=== PATIENT | male | born 2005 | race Two or more races ===

== ENCOUNTER → 2025-06-19 | Outpatient (CLI) | payer BC, SELFPAY ==
--- NOTE | 2025-06-19 10:19 | XR_ITS ---
Examination: Sinus series 4 views Technique: Oliverio Espino lateral submentovertex sinus series 4 views Date and time: June 19, 2025 1040 hrs. Indications: Left-sided facial pain and swelling 2 weeks. Findings: No significant sinusitis. No fluid levels. No retention cysts. No cortical bone destruction Impression: No significant sinusitis.
== END | disposition home or self-care (01) ==
DX: R22.0 Localized swelling, mass and lump, head (principal)
CPT/HCPCS: 70220